=== PATIENT | female | born 1990 | race Caucasian/White ===

== ENCOUNTER 2017-10-06 20:30 | Inpatient (IN) | payer BC ==
[~2017-10-06] VITALS: Ht 157.5 cm; Wt 58.1 kg
[2017-10-06] MEDS ORDERED: TERBUTALINE SULFATE 1 MG/ML VIAL ONE (21:24)
[2017-10-06] MEDS ORDERED: LR 1,000 ML IV ONE (22:18)
[2017-10-06] MEDS ORDERED: CEFAZOLIN 2 GM IVPB PREMIX 50 ML IV ONE (22:30)
[2017-10-06 22:50] LABS: HEMATOCRIT 28.7 % (36-48); MEAN CORPUSCULAR HEMOGLOBIN 27 pg (27-31); MEAN CORPUSCULAR HGB CONC 35 % (32-36); MEAN CORPUSCULAR VOLUME 79 fL (79.0-98.0); PLATELET COUNT (AUTO) 220 K/uL (130-430); RED BLOOD CELL COUNT(AUTO) 3.64 MIL/uL (4.2-6.2)
[2017-10-06 23:28] VITALS: BP_SYST 94
[2017-10-06 23:39] LABS: BAND % (MANUAL) 2 % (0-6); BASOPHILS % (MANUAL) 0 % (0-2); EOSINOPHILS % (MANUAL) 0 % (0-7); LYMPHOCYTES % (MANUAL) 25 % (20-46); MONOCYTES % (MANUAL) 6 % (0-11)
[2017-10-07] MEDS ORDERED: KETOROLAC TROMETHAMINE 30 MG VIAL IVP ONE (01:00)
[2017-10-07] MEDS ORDERED: MEPERIDINE HCL/PF 25 MG/ML DISP.SYRIN IVP PRN (01:00)
[2017-10-07] MEDS ORDERED: MIDAZOLAM HCL 5 MG/5 ML VIAL IVP PRN (01:00)
[2017-10-07] MEDS ORDERED: NALOXONE HCL 0.4 MG/ML AMP (NARCAN) IVP ONE (01:00)
[2017-10-07] MEDS ORDERED: ONDANSETRON HCL 4 MG/2 ML VIAL IVP ONE ×2 (01:00→02:10)
[2017-10-07] MEDS ORDERED: MORPHINE 4 MG/ML INJ. SYRINGE IVP PRN (01:00)
[2017-10-07] MEDS ORDERED: OXYTOCIN/0.9 % SODIUM CHLORIDE 1,000 ML IV ONE (01:11)
[2017-10-07] MEDS ORDERED: OXYCODONE/ACETAMINOPHEN 5-325 TABLET PO PRN (01:15)
[2017-10-07] MEDS ORDERED: LANOLIN 7 GM OINT. TP PRN (01:15)
[2017-10-07] MEDS ORDERED: RHO(D) IMMUNE GLOBULIN/MALTOSE 1500 UNITS/1.3 ML (WINHRO) IM PRN (01:15)
[2017-10-07] MEDS ORDERED: DIPH-TET-PERTUS Vaccine 0.5 ML VIAL (ADACEL) I.M. PRN (01:15)
[2017-10-07] MEDS ORDERED: BISACODYL 10 MG/SUPPOSITORY RC PRN (01:15)
[2017-10-07] MEDS ORDERED: ANUSOL 1 EA SUPP.RECT (PREPARATION H) RC PRN (01:15)
[2017-10-07] MEDS ORDERED: SENNOSIDES/DOCUSATE SODIUM 1 TAB TABLET(SENOKOT-S) PO PRN (01:15)
[2017-10-07] MEDS ORDERED: MEASLES,MUMPS&RUBELLA VACC/PF 12500 UNIT/0.5 ML VIAL SUBQ PRN (01:15)
[2017-10-07] MEDS ORDERED: SIMETHICONE 80 MG TAB.CHEW PO PRN (01:15)
[2017-10-07] MEDS ORDERED: HYDROcodone/ACETAMIN 5-325 MG TAB (NORCO/ VICODIN) PO PRN (01:15)
[2017-10-07] MEDS ORDERED: MORPHINE SULFATE 10MG/10ML PF AMP EP ONE (02:10)
[2017-10-07] MEDS ORDERED: OXYTOCIN 10 UNIT/ML VIAL IV ONE (02:10)
[2017-10-07] MEDS ORDERED: fentaNYL CITRATE/PF 100 MCG/2 ML AMP IVP ONE (02:10)
[2017-10-07] MEDS ORDERED: BUPIVACAINE /PF 0.75% 10 ML VIAL INJ ONE (02:10)
[2017-10-07] MEDS ORDERED: LR 1,000 ML IV.SOLN IV ONE (02:10)
[2017-10-07] MEDS ORDERED: MEPERIDINE HCL/PF 100 MG/ML AMP IM ONE (02:10)
[2017-10-07] MEDS ORDERED: NS IRRIG SOLN 1000 ML IR ONE (02:10)
[2017-10-07] MEDS: CEFAZOLIN 1 GM IVPB PREMIX 50 ML IV SCH (06:09)
[2017-10-07] MEDS: KETOROLAC TROMETHAMINE 30 MG VIAL IVP SCH ×2 (12:00→17:49)
[2017-10-07] MEDS: LR 1,000 ML IV SCH ×2 (15:14→23:50)
[2017-10-07] MEDS ORDERED: TEMAZEPAM 15 MG CAPSULE PO PRN (21:00)
[2017-10-07] MEDS ORDERED: TERBUTALINE SULFATE 2.5 MG TABLET PO PRN (23:30)
[2017-10-08] MEDS: CEFAZOLIN 1 GM IVPB PREMIX 50 ML IV SCH
[2017-10-08] MEDS: IBUPROFEN 600 MG TABLET PO SCH ×4 (06:13→23:52)
[2017-10-08 07:17] LABS: BASOPHILS % (AUTO) 0.2 % (0.0-2.0); EOSINOPHILS # (AUTO) 0.1 K/uL (0.0-0.4); EOSINOPHILS % (AUTO) 0.7 % (0.0-4.0); HEMATOCRIT 27.3 % (36-48); HEMOGLOBIN 9.4 g/dL (12.0-16.0); LYMPHOCYTES # (AUTO) 1.9 K/uL (1.0-5.5); LYMPHOCYTES % (AUTO) 16.6 % (20.5-51.5); MEAN CORPUSCULAR HEMOGLOBIN 27 pg (27-31); MEAN CORPUSCULAR HGB CONC 34 % (32-36); MEAN CORPUSCULAR VOLUME 79 fL (79.0-98.0); MONOCYTES # (AUTO) 0.5 K/uL (0.0-1.0); MONOCYTES % (AUTO) 4.7 % (1.7-9.3); NEUTROPHILS # (AUTO) 8.8 K/uL (1.8-7.7); NEUTROPHILS % (AUTO) 77.8 % (40.0-70.0); PLATELET COUNT (AUTO) 194 K/uL (130-430); RED BLOOD CELL COUNT(AUTO) 3.46 MIL/uL (4.2-6.2); RED CELL DISTRIBUTION WIDTH 21.6 % (9.0-15.0)
[2017-10-08 07:57] LABS: WHITE BLOOD COUNT (AUTO) 11.3 K/uL (4.8-10.8)
[2017-10-08] MEDS: DOCUSATE SODIUM 100 MG CAPSULE PO PRN (16:31)
[2017-10-08] MEDS: OXYCODONE/ACETAMINOPHEN 5-325 TABLET PO PRN (16:32)
[2017-10-09] MEDS: IBUPROFEN 600 MG TABLET PO SCH (05:48)
[2017-10-09] MEDS: DOCUSATE SODIUM 100 MG CAPSULE PO PRN (08:21)
[2017-10-09] MEDS: OXYCODONE/ACETAMINOPHEN 5-325 TABLET PO PRN (08:22)
== END 2017-10-09 10:50 | disposition home or self-care (01) | DRG 766 ==
LOC: SPU 20:30 → MERGE 21:30 → OBSVTOIN 21:30 → SPU 10-08 16:30
PROVIDERS: ADMIT Obstetrics & Gynecology; ATTEND Obstetrics & Gynecology
PROC: 10D00Z1 Extraction of Products of Conception, Low, Open Approach (ICD-10-PCS; principal; 2017-10-07)
DX: O34.211 Maternal care for low transverse scar from previous cesarean delivery (principal); Z37.0 Single live birth; Z3A.37 37 weeks gestation of pregnancy
CPT/HCPCS: 36415; 85007; 85025; 85027; 86592; 86870; 86886; 86900; 86901; 94760; G0378; J0690; J1885; J2175; J2274; J2405; J2590; J3010; J3105; J3490; J7120

== ENCOUNTER 2018-08-26 22:14 | Emergency (ER) | payer BC ==
[~2018-08-26] VITALS: Ht 157.5 cm; Wt 45.4 kg
[2018-08-26 22:21] VITALS: BP_SYST 112
[2018-08-26] MEDS ORDERED: KETOROLAC TROMETHAMINE 30 MG VIAL IM ONE (23:00)
[2018-08-26 23:17] LABS: HEMATOCRIT 35.4 % (36-48); HEMOGLOBIN 11.8 g/dL (12.0-16.0); LYMPHOCYTES % (AUTO) 52.7 % (20.5-51.5); MEAN CORPUSCULAR HEMOGLOBIN 27 pg (27-31); MEAN CORPUSCULAR HGB CONC 33 % (32-36); MEAN CORPUSCULAR VOLUME 82 fL (79.0-98.0); MONOCYTES % (AUTO) 5.6 % (1.7-9.3); PLATELET COUNT (AUTO) 231 K/uL (130-430); RED BLOOD CELL COUNT(AUTO) 4.33 MIL/uL (4.2-6.2); WHITE BLOOD COUNT (AUTO) 7.5 K/uL (4.8-10.8)
[2018-08-26 23:18] LABS: BASOPHILS % (AUTO) 0.6 % (0.0-2.0); EOSINOPHILS # (AUTO) 0.2 K/uL (0.0-0.4); EOSINOPHILS % (AUTO) 2.1 % (0.0-4.0); LYMPHOCYTES # (AUTO) 3.9 K/uL (1.0-5.5); MONOCYTES # (AUTO) 0.4 K/uL (0.0-1.0)
[2018-08-26 23:28] LABS: ANION GAP 7 (5-15); CHLORIDE 103 mmol/L (98-107); CREATININE 0.75 mg/dL (0.55-1.30); GFR AFRICAN AMERICAN 118 mL/min (>90); GLUCOSE 95 mg/dL (70-99); POTASSIUM 4.1 mmol/L (3.5-5.1); SODIUM SERUM 137 mmol/L (136-145); UREA NITROGEN, BLOOD 17 mg/dL (8-21)
[2018-08-26 23:33] LABS: ALANINE AMINOTRANSFERASE 23 U/L (12-78); ALBUMIN 3.5 g/dL (3.4-4.8); ASPARTATE AMINOTRANSFERASE 23 U/L (10-37); TOTAL BILIRUBIN 0.4 mg/dL (0.0-1.0)
[2018-08-26 23:55] VITALS: BP_SYST 112
== END 2018-08-26 23:54 | disposition home or self-care (01) ==
LOC: SED 22:14
DX: R07.89 Other chest pain (principal)
CPT/HCPCS: 36415; 71045; 80053; 84484; 85025; 93005; 96372; 99284; J1885

== ENCOUNTER 2020-02-13 12:20 | Emergency (ER) | payer BC ==
[~2020-02-13] VITALS: Ht 157.5 cm; Wt 47.6 kg
[2020-02-13 12:25] VITALS: BP_SYST 118
[2020-02-13 13:46] LABS: BARBITURATE, URINE NEGATIVE (NEG <=200); BENZODIAZEPINE, URINE NEGATIVE (NEG <=150); CANNABINOID, URINE NEGATIVE (NEG <=50); COCAINE, URINE NEGATIVE (NEG <=150); METHAMPHETAMINES SCREEN,URINE NEGATIVE (NEG <=500); OPIATE, URINE NEGATIVE (NEG <=100); PHENCYCLIDINE SCREEN,URINE NEGATIVE (NEG <=25); UR TRICYCLIC ANTIDEPRESSANTS NEGATIVE (NEG <=300); URINE AMPHETAMINE NEGATIVE (NEG <=500); URINE METHADONE NEGATIVE (NEG <=200); URINE OXYCODONE SCREEN NEGATIVE (NEG <=100); URINE PROPOXYPHENE SCREEN NEGATIVE (NEG <=300)
[2020-02-13 14:30] VITALS: BP_SYST 119
== END 2020-02-13 14:30 | disposition home or self-care (01) ==
LOC: SED 12:20
DX: Z13.89 Encounter for screening for other disorder (principal)
CPT/HCPCS: 36415; 80307; 99283; G0482

== ENCOUNTER 2022-07-19 14:45 | Emergency (ER) | payer BC ==
[~2022-07-19] VITALS: Ht 157.5 cm; Wt 45.4 kg
[2022-07-19 15:45] VITALS: BP_SYST 130
--- NOTE | 2022-07-19 15:50 | NUR ---
Patient triaged and placed in waiting room. VSS and patient appears in no acute distress at this time. Accompanied by FAMILY, awaiting available bed, and MD notified of need for MSE.
[2022-07-19] MEDS ORDERED: METH-634 PO (16:36)
[2022-07-19] MEDS ORDERED: LIDO1ADH22 TP (16:36)
[2022-07-19] MEDS ORDERED: DICL20GE TP (16:36)
[2022-07-19] MEDS ORDERED: NAPR-1172 PO (16:36)
[2022-07-19 16:44] VITALS: BP_SYST 126
--- NOTE | 2022-07-19 16:46 | NUR ---
Patient given written and verbal discharge instructions and verbalizes understanding. ER MD discussed with patient the results and treatment provided. Patient in stable condition. ID arm band removed. IV catheter removed intact and dressing applied, no active bleeding. Rx of VOLATEREN, LIDOCAINE PATCH, ROBAXIN, NAPROXEN given. Patient educated on pain management and to follow up with PMD. Pain Scale . Opportunity for questions provided and answered. Medication side effect fact sheet provided.
== END 2022-07-19 16:44 | disposition home or self-care (01) ==
LOC: SED 14:45
DX: M62.830 Muscle spasm of back (principal); M54.6 Pain in thoracic spine; Z79.899 Other long term (current) drug therapy
CPT/HCPCS: 99283